=== PATIENT | female | born 1995 | race Caucasian/White ===

== ENCOUNTER 2017-05-26 06:18 | Emergency (ER) | payer OTHER ==
[~2017-05-26] VITALS: Ht 165.1 cm; Wt 86.0 kg
[2017-05-26 06:25] VITALS: Ht 165.1 cm; Wt 86.0 kg
[2017-05-26] MEDS ORDERED: ONDANSETRON 2MG ODT PO STA (07:06)
[2017-05-26] MEDS ORDERED: ACETAMINOPHEN 500 MG TAB PO STA (07:06)
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
[2017-05-26] MEDS ORDERED: CYCL10TA6 PO (07:39)
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
[2017-05-26 09:19] VITALS: BP 134/89; PULSE 99; TEMP 37; O2SAT 97
== END 2017-05-26 09:20 | disposition home or self-care (01) ==
LOC: EDBD 06:18 → C.EDA 06:19 → MERGE 06:19 → C.EDA 09:20
DX: T14.8 Other injury of unspecified body region (principal); V49.40XA Driver injured in collision with unspecified motor vehicles in traffic accident, initial encounter; F17.200 Nicotine dependence, unspecified, uncomplicated